=== PATIENT | female | born 2000 | race American Indian/Alaskan Native ===

== ENCOUNTER 2020-08-09 17:06 | Outpatient (CLI) | payer MEDICAID ==
[2020-08-09 17:58] LABS: Hematocrit 36.6 % (30.3-42.9); Hemoglobin 12.5 gm/dl (10.1-14.3); Mean Corpuscular HGB Conc 34 % (30-34); Mean Corpuscular Volume 97 fl (79-97); Platelet Count 184 K/mm3 (140-440); Red Blood Count 3.77 M/mm3 (3.65-5.03)
[2020-08-09 18:11] LABS: Bacteria,Urine 1+ /HPF (Negative); Bilirubin,Urine NEG (Negative); Blood,Urine NEG (Negative); Color,Urine Straw (Yellow); Protein,Urine <15 mg/dL mg/dL (Negative); Urobilinogen,Urine < 2.0 mg/dL (<2.0)
[2020-08-09 18:18] LABS: Alanine Aminotransferase 22 units/L (7-56); Uric Acid 3.1 mg/dL (3.5-7.6)
[2020-08-09] MEDS ORDERED: ACETAMINOPHEN 500 MG TAB PO ONE (18:20)
[2020-08-09] MEDS ORDERED: METOCLOPRAMIDE 10 MG TAB PO ONE (18:20)
[2020-08-09 19:10] VITALS: BP 127/77
== END 2020-08-09 19:30 | disposition home or self-care (01) ==
LOC: TRG 17:06 → APU 17:08 → TRG 19:30
PROVIDERS: ATTEND Obstetrics & Gynecology
DX: O26.893 Other specified pregnancy related conditions, third trimester (principal); R11.2 Nausea with vomiting, unspecified; R51.9 Headache, unspecified; R60.0 Localized edema; Z3A.35 35 weeks gestation of pregnancy
CPT/HCPCS: 36415; 59025; 81001; 82565; 83615; 84450; 84460; 84550; 85027

== ENCOUNTER 2020-08-13 20:50 | Outpatient (CLI) | payer MEDICAID ==
[2020-08-13] MEDS ORDERED: ACETAMINOPHEN 500 MG TAB PO ONE (21:43)
[2020-08-13 21:45] LABS: Amorphous Crystals,Urine Few; Bilirubin,Urine NEG (Negative); Blood,Urine NEG (Negative); Color,Urine Yellow (Yellow); Mucus,Urine FEW /HPF; Protein,Urine <15 mg/dL mg/dL (Negative); Urobilinogen,Urine < 2.0 mg/dL (<2.0)
[2020-08-13 23:10] LABS: Hemoglobin 11.7 gm/dl (10.1-14.3); Mean Corpuscular HGB Conc 34 % (30-34); Mean Corpuscular Volume 96 fl (79-97); Platelet Count 206 K/mm3 (140-440); Red Blood Count 3.64 M/mm3 (3.65-5.03); Red Cell Distribution Width 13.4 % (13.2-15.2)
[2020-08-13 23:33] LABS: Alanine Aminotransferase 19 units/L (7-56)
[2020-08-14 01:38] LABS: Uric Acid 2.5 mg/dL (3.5-7.6)
[2020-08-14 02:59] VITALS: BP 114/51
== END 2020-08-14 01:52 | disposition home or self-care (01) ==
LOC: TRG 20:50 → APU 21:20 → TRG 08-14 01:52
PROVIDERS: ATTEND Obstetrics & Gynecology
DX: O13.3 Gestational [pregnancy-induced] hypertension without significant proteinuria, third trimester (principal); Z3A.36 36 weeks gestation of pregnancy
CPT/HCPCS: 36415; 59025; 81001; 82565; 83615; 84450; 84460; 84550; 85027; 87086

== ENCOUNTER 2020-08-31 18:56 | Outpatient (CLI) | payer MEDICAID ==
[2020-08-31 19:15] VITALS: BP 122/75
[2020-08-31] MEDS ORDERED: ACETAMINOPHEN 500 MG TAB PO ONE (19:37)
== END 2020-08-31 19:51 | disposition home or self-care (01) ==
LOC: TRG 18:56 → APU 18:58 → TRG 19:51
PROVIDERS: ATTEND Obstetrics & Gynecology
DX: O62.9 Abnormality of forces of labor, unspecified (principal); Z3A.38 38 weeks gestation of pregnancy
CPT/HCPCS: 59025; Q0177

== ENCOUNTER 2020-09-13 14:34 | Inpatient (IN) | payer MEDICAID ==
--- NOTE | 2020-09-13 17:41 | Ultrasound Report ---
ULTRASOUND OBSTETRIC LIMITED ULTRASOUND BIOPHYSICAL PROFILE INDICATION / CLINICAL INFORMATION: WELL BEING. Clinical Gestational Age (GA) in weeks, days: 40 weeks 2 days TECHNIQUE: Transabdominal. COMPARISON: None available. FINDINGS: BREATHING MOVEMENT = 2 GROSS BODY MOVEMENT = 2 TONE = 2 QUALITATIVE AMNIOTIC FLUID VOLUME = 2 TOTAL BIOPHYSICAL SCORE = 8/8 HEART RATE (beats per minute): 145 AMNIOTIC FLUID INDEX (cm) = 10.3 (normal = 7-24 cm) PRESENTATION: Cephalic. ADDITIONAL FINDINGS: None. IMPRESSION: 1. Biophysical Score = 8/8 2. Single viable IUP in a cephalic presentation. 3. Normal HIRAM Signer Name: Teresa Burt MD Signed: 09/13/2020 5:36 PM Workstation Name: [id number]
--- NOTE | 2020-09-13 18:14 | History and Physical Report ---
History of Present Illness Date of examination: 09/13/20 Date of admission: 09/13/20 Chief complaint: contractions History of present illness: Pt presents c/o contractions q 5 mintues. Pt evaluated in triage an noted to have variable decels and only 10x10 acels at time of provider evaltion. Pt did have reactive strip at some points during stay in triage. BPP was 8/8 with normal HIRAM however pt kept for iol due to being post term and having variable decels. Plan of care d/w pt and questions were addressed and answered. I d/w pt and fob serial IOL and that this can take up to three days. Both expressed understanidng. Pt is GBS positive. EDC Confirmation: 09/11/2020 Gestational Age: 40.2 weeks Past History : 3 Spont. Ab: 1 # 2 Delivery date: 08/2019 Delivery type: SAB Risk Factors: Smoked Tobacco Use: Never smoker Smokeless Tobacco Use: Never Drug use: yes Comments: [facility] HIV high-risk behavior: no Alcohol use: yes Exercise: yes Times per week: occ Seatbelt use: 100 % Past Medical History: Reviewed history from 08/23/2019 and no changes required: Arrhythmia ( SVT) Depression hospitalization 2018 Past Surgical History: Reviewed history from 08/23/2019 and no changes required: Cardiac ablation(01/2015) Past Medical History Social Hx: Marital Status: Single Children: 0 Occupation: graduated 2019 Smoking History: Patient has never smoked. Infection History HIV Risk Eval: no Genetic History Congenital Heart Defect: Mom: no Dad: no Jarrell Disease: Mom: no Dad: no Thalassemia Mom: no Dad: no Neural Tube Defect Mom: no Dad: no Down's Syndrome Mom: no Dad: no Alex-Sachs Mom: no Dad: no Sickle Cell Disease/Trait Mom: no Dad: no Hemophilia Mom: no Dad: no Muscular Dystrophy Mom: no Dad: no Cystic Fibrosis Mom: no Dad: no [place]ing Chorea Mom: no Dad: no Mental Retardation Mom: no Dad: no Fragile X Mom: no Dad: no Other Genetic/Chromosomal Disorder Mom: no Dad: no Child w/other defect Mom: no Dad: no Enviromental Exposures Xray Exposure: no Medication, drug, or alcohol use since LMP: no Chemical/Other Exposure: no Exposure to Cat Liter: no Hx of Parvovirus (Fifth Disease): no Occupational Exposure to Children: none Active Medications (reviewed today): PLUS 27-1 MG ORAL TABLET ( VIT-FE FUMARATE-FA) 1 po PROMETHAZINE HCL 12.5 MG ORAL TABLET (PROMETHAZINE HCL) 1 po q 6 hrs prn nausea OTC PNV () Current Allergies (reviewed today): No known allergies Past History Past Medical History: other (see hpi) Past Surgical History: no surgical history SUPPLY TECHNICIAN History: other (see hpi) Social history: no significant social history, single - Obstetrical History Expected Date of Delivery: 09/11/20 Actual Gestation: 40 Week(s) 4 Day(s) : 3 Induced : 1 Medications and Allergies Allergies Allergy/AdvReac Type Severity Reaction Status Date / Time No Known Allergies Allergy Unverified 08/09/20 18:25 Home Medications Medication Instructions Recorded Confirmed Last Taken Type No Known Home Medications [No 08/31/20 09/14/20 Unknown History Reported Home Medications] Review of Systems All systems: negative - Vital Signs Vital signs: Vital Signs Temp Pulse Resp Pulse Ox 98.1 F 94 H 16 99 09/13/20 15:00 09/13/20 15:00 09/13/20 15:00 09/13/20 15:00 Temp Pulse Resp BP Pulse Ox 98.1 F 86 16 131/86 99 09/13/20 15:00 09/13/20 18:06 09/13/20 15:00 09/13/20 17:50 09/13/20 18:06 - Physical Exam Breasts: Positive: deferred Lungs: Positive: Normal air movement Genitourinary (Female): Positive: normal perenium Vulva: both: normal (no lesions noted) Extremities: Positive: normal. Negative: tenderness, edema Deep Tendon Reflex Grade: Normal +2 - Obstetrical FHR: category 2 (variable decels) Cervical Dilatation: 1.5 (soft, mid position) Cervical Effacement Percentage: 60 station: -2 Results Result Diagrams: 09/13/20 19:12 09/13/20 19:12 All other labs normal. Assessment and Plan - Patient Problems (1) 40 weeks gestation of Current Visit: Yes Status: Acute (2) Variable deceleration Current Visit: Yes Status: Acute Plan to address problem: -admit -start serial IOL -antibx for GBS positive (3) Positive GBS test Current Visit: Yes Status: Acute Plan to address problem: -start antibx
[2020-09-13] MEDS ORDERED: LIDOCAINE (2%) 20 MG/1 ML VIAL 20 ML MDV INFILTRATI ONE (18:19)
[2020-09-13] MEDS ORDERED: CARBOPROST TROMETHAMINE 250 MCG/1 ML INJ IM PRN (19:00)
[2020-09-13] MEDS ORDERED: TERBUTALINE 1 MG/1 ML INJ SUB-Q PRN (19:00)
[2020-09-13] MEDS ORDERED: METHYLERGONOVINE MALEATE 0.2 MG/ML VIAL IM PRN (19:00)
[2020-09-13] MEDS ORDERED: LACTATED RINGERS 1,000 ML IV SCH (19:00)
[2020-09-13] MEDS ORDERED: MINERAL OIL 30 ML ORAL LIQD PO PRN (19:00)
[2020-09-13] MEDS ORDERED: ACETAMINOPHEN 325 MG TAB PO PRN (19:00)
[2020-09-13] MEDS ORDERED: ONDANSETRON 4 MG/2 ML INJ IV PRN (19:00)
[2020-09-13] MEDS ORDERED: OXYTOCIN DRIP 30 UNITS/500 ML BAG IV SCH (19:00)
[2020-09-13] MEDS ORDERED: fentaNYL 100 MCG/2 ML INJ IV PRN (19:00)
[2020-09-13] MEDS ORDERED: DINOPROSTONE 10 MG VAG SUPP VG ONE (19:00)
[2020-09-13] MEDS ORDERED: BUTORPHANOL 2 MG/1 ML INJ IV PRN (19:00)
[2020-09-13] MEDS ORDERED: LOPERAMIDE 2 MG CAP PO PRN (19:00)
[2020-09-13] MEDS ORDERED: OXYTOCIN 10 UNIT/1 ML INJ IM PRN (19:00)
[2020-09-13] MEDS ORDERED: miSOPROStol 200 MCG TAB PR PRN (19:00)
[2020-09-13] MEDS ORDERED: ePHEDrine SULFATE 50 MG/1 ML INJ IV PRN (19:00)
[2020-09-13] MEDS ORDERED: AMPICILLIN/NS 2 GM/100 ML 2 GM/100 ML BAG IV ONE (19:00)
[2020-09-13 19:36] LABS: Hematocrit 36.4 % (30.3-42.9); Hemoglobin 12.4 gm/dl (10.1-14.3); Mean Corpuscular HGB Conc 34 % (30-34); Mean Corpuscular Volume 95 fl (79-97); Platelet Count 191 K/mm3 (140-440); Red Blood Count 3.83 M/mm3 (3.65-5.03); Red Cell Distribution Width 13.1 % (13.2-15.2)
[2020-09-13 19:58] LABS: Alanine Aminotransferase 12 units/L (7-56); Uric Acid 3.3 mg/dL (3.5-7.6)
[2020-09-13 20:05] LABS: Bilirubin,Urine NEG (Negative); Blood,Urine SM (Negative); Color,Urine Yellow (Yellow); Mucus,Urine FEW /HPF; Protein,Urine <15 mg/dL mg/dL (Negative); Urobilinogen,Urine < 2.0 mg/dL (<2.0)
[2020-09-13] MEDS: AMPICILLIN/NS 1 GM/50 ML 1 GM/50 ML BAG IV SCH (23:45)
--- NOTE | 2020-09-14 00:53 | Event Note ---
Date: 09/14/20 Pt with labile blood pressures. PIH labs are normal and she has no sx. Will cont to closely monitor.
--- NOTE | 2020-09-14 08:18 | Progress Note ---
Assessment and Plan CNM and RN to BS. Cervidil pulled and SVE performed. Pt tolerated procedures well. Reports contractions and desires for epidural eventually for labor pain management. POC reviewed. Pt ok to have am care and breakfast then start Pitocin IV induction per protocol. All questions and concerns addressed. - Patient Problems (1) 40 weeks gestation of Current Visit: Yes Status: Acute (2) Positive GBS test Current Visit: Yes Status: Acute Plan to address problem: antibiotics as ordered Subjective - Subjective Date of service: 09/14/20 Principal diagnosis: IOL GHTN Patient reports: contractions, no new complaints, no loss of fluid, no vaginal bleeding Objective - Vital Signs Vital Signs: Vital Signs - 12hr 09/13/20 09/13/20 09/13/20 20:18 20:23 20:28 Temperature Pulse Rate 97 H 92 H 89 Blood Pressure O2 Sat by Pulse 98 98 98 Oximetry 09/13/20 09/13/20 09/13/20 20:33 20:38 20:43 Temperature Pulse Rate 89 91 H 86 Blood Pressure O2 Sat by Pulse 98 98 97 Oximetry 09/13/20 09/13/20 09/13/20 20:48 20:53 20:58 Temperature Pulse Rate 86 89 86 Blood Pressure O2 Sat by Pulse 97 98 97 Oximetry 09/13/20 09/13/20 09/13/20 21:03 21:08 21:13 Temperature Pulse Rate 86 87 94 H Blood Pressure O2 Sat by Pulse 97 97 97 Oximetry 09/13/20 09/13/20 09/13/20 21:18 21:23 21:28 Temperature Pulse Rate 86 80 89 Blood Pressure O2 Sat by Pulse 97 97 97 Oximetry 09/13/20 09/13/20 09/13/20 21:33 21:38 21:43 Temperature Pulse Rate 82 86 89 Blood Pressure O2 Sat by Pulse 97 97 97 Oximetry 09/13/20 09/13/20 09/13/20 21:48 21:53 21:58 Temperature Pulse Rate 90 86 90 Blood Pressure O2 Sat by Pulse 97 97 98 Oximetry 09/13/20 09/13/20 09/13/20 22:03 22:08 22:13 Temperature Pulse Rate 86 91 H 85 Blood Pressure O2 Sat by Pulse 98 98 98 Oximetry 09/13/20 09/13/20 09/13/20 22:18 22:23 22:28 Temperature Pulse Rate 87 85 84 Blood Pressure O2 Sat by Pulse 98 98 99 Oximetry 09/13/20 09/13/20 09/13/20 22:33 22:38 22:43 Temperature Pulse Rate 89 81 87 Blood Pressure O2 Sat by Pulse 98 98 98 Oximetry 09/13/20 09/13/20 09/13/20 22:48 22:53 22:58 Temperature Pulse Rate 83 80 86 Blood Pressure O2 Sat by Pulse 98 98 98 Oximetry 09/13/20 09/13/20 09/13/20 23:03 23:08 23:13 Temperature Pulse Rate 86 91 H 82 Blood Pressure O2 Sat by Pulse 98 98 99 Oximetry 09/13/20 09/13/20 09/13/20 23:18 23:23 23:28 Temperature Pulse Rate 83 86 98 H Blood Pressure O2 Sat by Pulse 98 98 99 Oximetry 09/13/20 09/13/20 09/13/20 23:33 23:34 23:48 Temperature Pulse Rate 104 H 90 117 H Blood Pressure 134/65 O2 Sat by Pulse 99 98 Oximetry 09/13/20 09/13/20 09/14/20 23:53 23:58 00:03 Temperature Pulse Rate 93 H 86 91 H Blood Pressure O2 Sat by Pulse 99 99 98 Oximetry 09/14/20 09/14/20 09/14/20 00:08 00:13 00:18 Temperature Pulse Rate 87 95 H 88 Blood Pressure O2 Sat by Pulse 98 99 99 Oximetry 09/14/20 09/14/20 09/14/20 00:23 00:28 00:33 Temperature Pulse Rate 97 H 92 H 86 Blood Pressure O2 Sat by Pulse 98 99 100 Oximetry 09/14/20 09/14/20 09/14/20 00:35 00:38 00:43 Temperature 98.3 F Pulse Rate 97 H 88 Blood Pressure O2 Sat by Pulse 100 99 Oximetry 09/14/20 09/14/20 09/14/20 00:48 00:53 01:07 Temperature Pulse Rate 97 H 99 H 101 H Blood Pressure O2 Sat by Pulse 100 99 98 Oximetry 09/14/20 09/14/20 09/14/20 01:12 01:17 01:22 Temperature Pulse Rate 84 80 85 Blood Pressure O2 Sat by Pulse 98 99 99 Oximetry 09/14/20 09/14/20 09/14/20 01:27 01:32 01:37 Temperature Pulse Rate 85 87 90 Blood Pressure O2 Sat by Pulse 98 98 99 Oximetry 09/14/20 09/14/20 09/14/20 01:42 01:47 01:52 Temperature Pulse Rate 93 H 85 81 Blood Pressure O2 Sat by Pulse 99 98 98 Oximetry 09/14/20 09/14/20 09/14/20 01:57 02:02 02:07 Temperature Pulse Rate 86 82 85 Blood Pressure O2 Sat by Pulse 97 98 98 Oximetry 09/14/20 09/14/20 09/14/20 02:12 02:17 02:22 Temperature Pulse Rate 77 80 90 Blood Pressure O2 Sat by Pulse 99 99 98 Oximetry 09/14/20 09/14/20 09/14/20 02:27 02:32 02:37 Temperature Pulse Rate 92 H 86 90 Blood Pressure O2 Sat by Pulse 98 98 98 Oximetry 09/14/20 09/14/20 09/14/20 02:42 02:47 02:52 Temperature Pulse Rate 83 80 85 Blood Pressure O2 Sat by Pulse 98 99 98 Oximetry 09/14/20 09/14/20 09/14/20 02:57 03:02 03:07 Temperature Pulse Rate 78 85 84 Blood Pressure O2 Sat by Pulse 98 98 98 Oximetry 09/14/20 09/14/20 09/14/20 03:12 03:17 03:22 Temperature Pulse Rate 89 81 87 Blood Pressure O2 Sat by Pulse 97 98 97 Oximetry 09/14/20 09/14/20 09/14/20 03:27 03:32 03:37 Temperature Pulse Rate 80 78 79 Blood Pressure O2 Sat by Pulse 97 97 97 Oximetry 09/14/20 09/14/20 09/14/20 03:42 03:47 03:52 Temperature Pulse Rate 79 72 75 Blood Pressure O2 Sat by Pulse 97 97 97 Oximetry 09/14/20 09/14/20 09/14/20 03:57 04:02 04:07 Temperature Pulse Rate 84 83 70 Blood Pressure O2 Sat by Pulse 97 97 97 Oximetry 09/14/20 09/14/20 09/14/20 04:12 04:17 04:22 Temperature Pulse Rate 74 73 76 Blood Pressure O2 Sat by Pulse 97 97 97 Oximetry 08/02/21 08/02/21 08/02/21 04:27 04:32 04:37 Temperature Pulse Rate 75 95 H 105 H Blood Pressure O2 Sat by Pulse 97 98 98 Oximetry 09/14/20 09/14/20 09/14/20 04:42 04:47 04:52 Temperature Pulse Rate 89 74 77 Blood Pressure O2 Sat by Pulse 96 98 97 Oximetry 09/14/20 09/14/20 09/14/20 04:57 05:02 05:07 Temperature Pulse Rate 77 96 H 73 Blood Pressure O2 Sat by Pulse 98 99 98 Oximetry 09/14/20 09/14/20 09/14/20 05:12 05:17 05:22 Temperature Pulse Rate 79 71 84 Blood Pressure O2 Sat by Pulse 97 98 98 Oximetry 09/14/20 09/14/20 09/14/20 05:27 05:32 05:37 Temperature Pulse Rate 98 H 74 78 Blood Pressure O2 Sat by Pulse 95 98 97 Oximetry 09/14/20 09/14/20 09/14/20 05:42 05:53 05:58 Temperature Pulse Rate 114 H 103 H 98 H Blood Pressure O2 Sat by Pulse 99 99 99 Oximetry 09/14/20 09/14/20 09/14/20 06:03 06:08 06:13 Temperature Pulse Rate 79 79 83 Blood Pressure O2 Sat by Pulse 98 97 98 Oximetry 09/14/20 09/14/20 09/14/20 06:18 06:23 06:28 Temperature Pulse Rate 92 H 84 85 Blood Pressure O2 Sat by Pulse 98 99 98 Oximetry 09/14/20 09/14/20 09/14/20 06:33 06:38 06:43 Temperature Pulse Rate 95 H 97 H 116 H Blood Pressure O2 Sat by Pulse 98 98 99 Oximetry 09/14/20 09/14/20 09/14/20 06:48 06:53 06:58 Temperature Pulse Rate 93 H 106 H 89 Blood Pressure O2 Sat by Pulse 98 99 98 Oximetry 09/14/20 09/14/20 09/14/20 07:03 07:08 07:13 Temperature Pulse Rate 88 93 H 85 Blood Pressure O2 Sat by Pulse 99 98 99 Oximetry 09/14/20 09/14/20 09/14/20 07:18 07:23 07:28 Temperature Pulse Rate 99 H 85 93 H Blood Pressure O2 Sat by Pulse 98 99 99 Oximetry 09/14/20 09/14/20 09/14/20 07:33 07:38 07:43 Temperature Pulse Rate 89 89 87 Blood Pressure O2 Sat by Pulse 98 99 99 Oximetry 09/14/20 09/14/20 09/14/20 07:48 07:53 07:58 Temperature Pulse Rate 74 83 88 Blood Pressure O2 Sat by Pulse 99 99 99 Oximetry 09/14/20 09/14/20 08:03 08:08 Temperature Pulse Rate 96 H 92 H Blood Pressure O2 Sat by Pulse 99 99 Oximetry - Exam Breasts: deferred Cardiovascular: Regular rate Lungs: Normal air movement Abdomen: Present: normal appearance, soft Vulva: both: normal Uterus: Present: normal FHR: auscultation normal, category 1 Uterine Contraction Monitor Mode: External Cervical Dilatation: 3 Cervical Effacement Percentage: 60 station: -2 Uterine Contraction Pattern: Irregular Uterine Tone Measurement Phase: Resting Extremities: normal - Labs Labs: Abnormal Labs 09/13/20 09/13/20 19:12 19:12 WBC 12.2 H RDW 13.1 L Uric Acid 3.3 L Lactate Dehydrogenase 197 H Laboratory Results - last 24 hr 09/13/20 09/13/20 09/13/20 18:49 19:12 19:12 WBC 12.2 H RBC 3.83 Hgb 12.4 Hct 36.4 MCV 95 MCH 32 MCHC 34 RDW 13.1 L Plt Count 191 Creatinine 0.6 Estimated GFR > 60 Uric Acid 3.3 L AST 21 ALT 12 Lactate Dehydrogenase 197 H Urine Color Yellow Urine Turbidity Clear Urine pH 6.0 Ur Specific [place] 1.013 Urine Protein <15 mg/dl Urine Glucose (UA) Neg Urine Ketones Neg Urine Blood Sm Urine Nitrite Neg Urine Bilirubin Neg Urine Urobilinogen < 2.0 Ur Leukocyte Esterase Neg Urine WBC (Auto) 1.0 Urine RBC (Auto) 11.0 U Epithel Cells (Auto) < 1.0 Urine Mucus Few Syphilis IgG Antibody Blood Type Antibody Screen 09/13/20 09/13/20 19:12 19:12 WBC RBC Hgb Hct MCV MCH MCHC RDW Plt Count Creatinine Estimated GFR Uric Acid AST ALT Lactate Dehydrogenase Urine Color Urine Turbidity Urine pH Ur Specific [place] Urine Protein Urine Glucose (UA) Urine Ketones Urine Blood Urine Nitrite Urine Bilirubin Urine Urobilinogen Ur Leukocyte Esterase Urine WBC (Auto) Urine RBC (Auto) U Epithel Cells (Auto) Urine Mucus Syphilis IgG Antibody Nonreactive Blood Type A POSITIVE Antibody Screen Negative
[2020-09-14] MEDS: OXYTOCIN DRIP 30 UNITS/500 ML BAG IV SCH ×4 (09:45→17:35)
[2020-09-14] MEDS: AMPICILLIN/NS 1 GM/50 ML 1 GM/50 ML BAG IV SCH ×2 (12:15→16:08)
--- NOTE | 2020-09-14 12:26 | Event Note ---
Date: 09/14/20 Pt reports tolerable "period like cramps", denies having any other complaints at this time. Pt consented for SVE and AROM, risks and benefits d/w pt and pt verbalizes understanding. SVE /-2 AROM clear. POC d/w pt. Plan to continue pitocin IOL and VS per protocol, antibiotics q4h, continuous monitoring for changes in maternal or status; anticipate
[2020-09-14] MEDS ORDERED: ePHEDrine SULFATE 50 MG/1 ML INJ IV PRN (14:21)
[2020-09-14] MEDS ORDERED: NALOXONE 2 MG/2 ML INJ IV PRN (14:21)
--- NOTE | 2020-09-14 14:24 | Anesthesia Consultation ---
Anesthesia Consult and Med Hx Date of service: 09/14/20 - Airway Anesthetic Teeth Evaluation: Poor ROM Head & Neck: Adequate Mental/Hyoid Distance: Adequate Mallampati Class: Class II Intubation Access Assessment: Good - Pulmonary Exam CTA: Yes - Cardiac Exam Cardiac Exam: RRR - Pre-Operative Health Status ASA Pre-Surgery Classification: ASA2 Proposed Anesthetic Plan: Epidural - Pulmonary Hx Smoking: No Hx Asthma: No Hx Respiratory Symptoms: No SOB: No COPD: No Home Oxygen Therapy: No Hx Pneumonia: No Hx Sleep Apnea: No - Cardiovascular System Hx Hypertension: No Hx Coronary Artery Disease: No Hx Heart Attack/AMI: No Hx Angina: No Hx Percutaneous Transluminal Coronary Angioplasty (PTCA): No Hx Cardia Arrhythmia: No Hx Pacemaker: No Hx Internal Defibrillator: No Hx Valvular Heart Disease: No Hx Heart Murmur: No Hx Peripheral Vascular Disease: No - Central Nervous System Hx Neuromuscular Disorder: No Hx Seizures: No CVA: No Hx Back Pain: Yes Hx Psychiatric Problems: No - Gastrointestinal Hx Ulcer: No Hx Gastroesophageal Reflux Disease: Yes - Endocrine Hx Renal Disease: No Hx End Stage Renal Disease: No Hx Cirrhosis: No Hx Liver Disease: No Hx Insulin Dependent Diabetes: No Hx Non-Insulin Dependent Diabetes: No Hx Thyroid Disease: No Hx Hypothyroidism: No Hx Hyperthyroidism: No - Hematic Hx Anemia: No Hx Sickle Cell Disease: No - Other Systems Hx Alcohol Use: No Hx Substance Use: No Hx Cancer: No Hx Obesity: Yes
[2020-09-14] MEDS ORDERED: fentaNYL-BUPIV 2 MCG/ML-0.125% 200 MCG/100 ML BAG EPIDURAL SCH (15:00)
--- NOTE | 2020-09-14 16:51 | Progress Note ---
Labor Epidural - Labor Epidural Start Time: 14:38 Stop Time: 14:43 Performed by:: DELBERT TREJO Procedure: Patient is requesting a laboring epidural for laboring pain. Patient IDed, H&P reviewed, all questions and concerns were answered, and consent was signed. Timeout was performed at bedside. Patient in sitting position. Sterile prep and drape was performed. [3] ml of 1% lidocaine skin wheal at L[3]- L [4]. 18- gauge Onel epidural needle was advanced to loss of resistance with saline technique 8cm. Negative CSF negative blood. Epidural catheter advanced to [12] centimeters. [NEGATIVE] Aspiration [NEGATIVE] test dose. Sterile dressing applied. Patient tolerated procedure.
--- NOTE | 2020-09-14 22:36 | Procedure Note ---
OB Delivery Note - Delivery Date of Delivery: 09/14/20 Fermentation Scientist: TAYE MAYNARD Estimated blood loss: 100cc - Vaginal Delivery presentation: vertex Delivery position: OA Intrapartum events: gestational hypertension, shoulder dystocia (<30seconds, relieved first attempt with Megan maneuver and simultaneous RN suprapubic pressure) Delivery induction: cervidil Delivery augmentation: rupture of membranes, pitocin Delivery monitor: external FHT, external uterine, internal FHT, internal uterine Route of delivery: Delivery placenta: spontaneous Delivery cord: 3 umbilical vessels Episiotomy: none Delivery laceration: vaginal side wall Delivery repair: other (repair not needed; hemostatic) Anesthesia: epidural Delivery comments: all counts correct x2 OLGA present for delivery Pericare done, fundus firm 2 fingerbreadths below umbilicus with scant vaginal bleeding Mom and baby remain LDR stable - Infant A at 1 minute: 8 at 5 minutes: 9 Gender: Female ("Terrei" [id number])
[2020-09-15] MEDS ORDERED: oxyCODONE /ACETAMINOPHEN 5-325MG TAB PO PRN (00:55)
[2020-09-15] MEDS ORDERED: BENZOCAINE/MENTHOL 20/0.5% TOP SPRAY 56 GM TP PRN (00:55)
[2020-09-15] MEDS ORDERED: ACETAMINOPHEN 325 MG TAB PO PRN (00:55)
[2020-09-15] MEDS ORDERED: ONDANSETRON 4 MG/2 ML INJ IV PRN (00:55)
[2020-09-15] MEDS ORDERED: diphenhydrAMINE 25 MG CAP PO PRN (00:55)
[2020-09-15] MEDS ORDERED: MAGNESIUM HYDROXIDE (MOM) ORAL LIQD UDC PO PRN (00:55)
[2020-09-15] MEDS ORDERED: LANOLIN/ZINC/DIMETHICONE (LANSINOH) 7 GM TP PRN (00:55)
[2020-09-15] MEDS ORDERED: WITCH HAZEL/ GLYCERIN PAD TP PRN (00:55)
[2020-09-15] MEDS ORDERED: PROMETHAZINE 25 MG TAB PO PRN (00:55)
[2020-09-15] MEDS: IBUPROFEN 600 MG TAB PO SCH ×2 (04:35→20:07)
--- NOTE | 2020-09-15 05:31 | Progress Note ---
Assessment and Plan - Patient Problems (1) Spontaneous vaginal delivery Onset Date: ~09/14/20 Current Visit: Yes Status: Acute Plan to address problem: Pt resting No c/o voiced BP 138/78 remainder wnl. FF below umb Lochia small perineum slight swelling intact. H&H pending Stable s/p vag delivery; GHTN P: continue pathway Advance as tolerated. Continue close monitoring of BP (2) Gestational hypertension Onset Date: ~09/15/20 Current Visit: Yes Status: Acute Qualifiers: Trimester: unspecified trimester Qualified Code(s): O13.9 - Gestational [-induced] hypertension without significant proteinuria, unspecified trimester Plan to address problem: BP 138/87 this AM @ 0430 Will closely monitor BP. Pt denies PADILLA Blurred vision, Chest pain. Subjective - Subjective Date of service: 09/15/20 (sleeping No c/o voiced) Principal diagnosis: 12hr s/p ; GHTN Patient reports: appetite normal, voiding normally, pain well controlled, ambulating normally : doing well Objective - Vital Signs Latest vital signs: Vital Signs Temp Pulse Resp BP BP Pulse Ox Pulse Ox 09/15/20 04:35 20 09/15/20 04:30 98.6 F 86 18 138/87 98 09/15/20 01:15 99 09/15/20 01:11 99 F 96 H 127/67 09/15/20 00:54 111 H 99 09/15/20 00:49 111 H 98 09/15/20 00:44 122 H 129/62 98 09/15/20 00:39 119 H 97 09/15/20 00:34 115 H 95 09/15/20 00:30 115 H 94 09/15/20 00:29 110 H 122/61 98 09/15/20 00:24 112 H 98 09/15/20 00:23 112 H 94 09/15/20 00:19 109 H 95 09/15/20 00:17 235 H 94 09/15/20 00:14 114 H 127/61 96 09/15/20 00:09 105 H 97 09/15/20 00:04 115 H 99 09/14/20 23:59 101 H 129/61 96 09/14/20 23:54 105 H 98 09/14/20 23:49 107 H 96 09/14/20 23:44 107 H 130/58 97 09/14/20 23:43 103 H 94 09/14/20 23:39 101 H 97 09/14/20 23:34 115 H 97 09/14/20 23:29 106 H 128/60 97 09/14/20 23:24 103 H 97 09/14/20 23:19 103 H 97 09/14/20 23:14 103 H 124/77 97 09/14/20 23:09 102 H 97 09/14/20 23:04 95 H 97 09/14/20 22:59 101 H 118/89 98 09/14/20 22:54 99 H 96 09/14/20 22:49 108 H 97 09/14/20 22:44 106 H 123/81 97 09/14/20 22:39 110 H 97 09/14/20 22:36 98.8 F 107 H 118/84 09/14/20 22:34 109 H 98 09/14/20 22:33 114 H 93 09/14/20 22:29 107 H 97 09/14/20 22:24 108 H 100 09/14/20 22:19 107 H 100 09/14/20 22:14 124 H 135/61 99 09/14/20 22:09 108 H 97 09/14/20 22:04 104 H 100 09/14/20 21:59 101 H 136/62 99 09/14/20 21:54 119 H 99 09/14/20 21:49 107 H 99 09/14/20 21:44 107 H 133/61 99 09/14/20 21:39 103 H 100 09/14/20 21:34 103 H 100 09/14/20 21:29 94 H 112/53 100 02 21:24 82 100 09/14/20 21:19 92 H 100 09/14/20 21:15 78 128/59 02 21:14 88 99 09/14/20 21:09 86 98 09/14/20 21:04 81 98 02 21:00 85 131/61 09/14/20 20:59 85 98 09/14/20 20:54 71 100 09/14/20 20:49 74 100 09/14/20 20:44 89 126/58 99 09/14/20 20:39 92 H 99 09/14/20 20:34 82 98 09/14/20 20:29 79 129/67 99 09/14/20 20:24 75 100 09/14/20 20:19 94 H 100 09/14/20 20:15 88 116/56 09/14/20 20:14 98 H 100 09/14/20 20:09 91 H 99 09/14/20 20:04 91 H 97 09/14/20 20:00 86 125/65 09/14/20 19:59 87 98 09/14/20 19:54 100 H 99 09/14/20 19:49 94 H 98 09/14/20 19:45 85 132/65 09/14/20 19:44 95 H 98 09/14/20 19:39 89 99 09/14/20 19:34 76 99 09/14/20 19:29 87 130/66 98 09/14/20 19:24 77 99 09/14/20 19:19 83 99 09/14/20 19:18 98.6 F 86 12 100 09/14/20 19:14 85 116/58 100 09/14/20 19:09 79 100 09/14/20 19:04 84 100 09/14/20 19:00 80 125/66 09/14/20 18:59 81 100 09/14/20 18:54 88 100 09/14/20 18:51 97.7 F 09/14/20 18:49 97 H 100 09/14/20 18:45 82 135/71 09/14/20 18:44 85 99 09/14/20 18:39 86 100 09/14/20 18:34 78 100 09/14/20 18:29 85 132/75 99 09/14/20 18:24 87 99 09/14/20 18:19 93 H 100 09/14/20 18:15 87 137/82 09/14/20 18:14 93 H 99 09/14/20 18:09 87 100 09/14/20 18:04 87 99 09/14/20 18:00 83 133/82 09/14/20 17:59 85 99 09/14/20 17:54 78 99 02 17:49 85 99 09/14/20 17:45 69 125/67 09/14/20 17:44 76 98 09/14/20 17:39 73 98 08/02/21 17:34 87 98 09/14/20 17:29 75 129/67 97 09/14/20 17:24 73 98 09/14/20 17:19 73 98 09/14/20 17:14 72 125/64 97 09/14/20 17:09 73 97 09/14/20 17:04 77 97 09/14/20 16:59 54 L 125/68 88 09/14/20 16:51 77 94 09/14/20 16:46 74 96 09/14/20 16:44 69 127/64 09/14/20 16:41 74 97 09/14/20 16:36 76 98 09/14/20 16:31 78 98 09/14/20 16:29 74 127/65 09/14/20 16:26 79 99 09/14/20 16:21 66 98 09/14/20 16:16 73 98 09/14/20 16:14 75 127/65 09/14/20 16:11 72 99 09/14/20 16:06 73 98 09/14/20 16:01 74 97 09/14/20 15:59 86 125/64 09/14/20 15:56 73 96 09/14/20 15:51 72 98 09/14/20 15:46 74 98 09/14/20 15:45 73 126/67 09/14/20 15:41 80 99 09/14/20 15:38 98.1 F 09/14/20 15:36 81 99 09/14/20 15:31 78 98 09/14/20 15:30 78 135/70 09/14/20 15:26 79 99 09/14/20 15:21 79 99 09/14/20 15:16 78 99 09/14/20 15:14 76 132/69 09/14/20 15:11 79 131/68 98 09/14/20 15:08 73 129/64 09/14/20 15:06 78 98 09/14/20 15:05 77 129/71 09/14/20 15:02 77 127/64 09/14/20 15:01 79 99 09/14/20 14:59 77 125/66 09/14/20 14:56 80 127/68 99 09/14/20 14:53 75 133/71 09/14/20 14:51 82 99 08/02/21 14:47 89 133/79 09/14/20 14:46 95 H 99 09/14/20 14:44 87 129/72 09/14/20 14:41 100 H 139/70 100 09/14/20 14:38 100 H 137/86 09/14/20 14:36 94 H 100 09/14/20 14:31 97 H 99 09/14/20 14:26 85 100 09/14/20 14:21 78 100 09/14/20 14:16 77 99 09/14/20 14:11 92 H 100 09/14/20 14:06 96 H 100 09/14/20 14:02 88 133/74 09/14/20 14:01 88 99 09/14/20 13:56 87 99 09/14/20 13:51 93 H 99 09/14/20 13:46 92 H 100 09/14/20 13:41 107 H 99 09/14/20 13:36 93 H 99 09/14/20 13:32 88 117/69 09/14/20 13:31 90 99 09/14/20 13:26 103 H 99 09/14/20 13:21 86 99 09/14/20 13:16 100 H 99 09/14/20 13:11 101 H 98 09/14/20 13:06 94 H 99 09/14/20 13:03 93 H 125/59 09/14/20 13:01 99 H 98 09/14/20 12:56 93 H 99 09/14/20 12:51 101 H 99 09/14/20 12:46 98 H 99 09/14/20 12:41 104 H 99 09/14/20 12:36 108 H 99 09/14/20 12:32 105 H 132/81 09/14/20 12:31 99 H 99 09/14/20 12:26 107 H 99 09/14/20 12:13 90 99 09/14/20 12:08 93 H 98 09/14/20 12:03 97.9 F 91 H 98 09/14/20 12:02 96 H 125/70 09/14/20 08:18 84 98 09/14/20 08:13 85 98 09/14/20 08:12 85 133/81 09/14/20 08:08 92 H 99 09/14/20 08:07 98.0 F 90 16 133/81 98 09/14/20 08:03 96 H 99 09/14/20 07:58 88 99 09/14/20 07:53 83 99 09/14/20 07:48 74 99 09/14/20 07:43 87 99 09/14/20 07:38 89 99 09/14/20 07:33 89 98 09/14/20 07:28 93 H 99 09/14/20 07:23 85 99 09/14/20 07:18 99 H 98 09/14/20 07:13 85 99 09/14/20 07:08 93 H 98 09/14/20 07:03 88 99 09/14/20 06:58 89 98 09/14/20 06:53 106 H 99 09/14/20 06:48 93 H 98 09/14/20 06:43 116 H 99 09/14/20 06:38 97 H 98 09/14/20 06:33 95 H 98 09/14/20 06:28 85 98 09/14/20 06:23 84 99 09/14/20 06:18 92 H 98 09/14/20 06:13 83 98 09/14/20 06:08 79 97 09/14/20 06:03 79 98 09/14/20 05:58 98 H 99 09/14/20 05:53 103 H 99 09/14/20 05:42 114 H 99 09/14/20 05:37 78 97 09/14/20 05:32 74 98 Intake and Output 09/14/20 09/14/20 09/15/20 14:59 22:59 06:59 Intake Total 50 22.433 240 Output Total 700 800 Balance 50 -677.567 -560 Intake: IV 50 22.433 AMPICILLIN/NS 1 GM/50 ML 50 1 gm In 50 ml @ 100 mls/ hr IV Q4H [facility] Rx#: [id number] PITOCin/NS 30 UNIT/500ML 22.433 30 units In 500 ml @ 2 mls/hr IV TITR [facility] Rx#: [id number] Oral 240 Output: Urine 700 800 Indwelling 200 Indwelling Catheter 500 Void 800 Other: Total, Intake Amount 120 Total, Output Amount 350 800 # Voids Void 1 Estimated Blood Loss 100 - Exam Breasts: Present: normal Cardiovascular: Present: Regular rate Lungs: Present: Normal air movement Abdomen: Present: normal appearance, soft Uterus: Present: normal, fundal height below umbilicus Extremities: Present: normal Deep Tendon Reflex Grade: Normal +2 Incision: Present: normal, dry, intact
[2020-09-15] MEDS: PRENATAL VIT27-FE FUMARATE-FOLIC ACID VIT TAB PO SCH (10:03)
[2020-09-15] MEDS: DOCUSATE SODIUM 100 MG CAP PO SCH ×2 (10:03→21:39)
--- NOTE | 2020-09-15 13:36 | Post Anesthesia Evaluation ---
- Post Anesthesia Evaluation Patient Participated: Yes Airway Patent: Yes Stable Respiratory Function: Yes Nausea/Vomiting: No Temp > 96.8F: Yes Pain Manageable: Yes Adequeate Hydration: Yes Anesthesia Complications: No Block Receding Appropriately: Yes Patient on Ventilator: No
[2020-09-15 16:33] LABS: Hematocrit 35.1 % (30.3-42.9); Hemoglobin 11.7 gm/dl (10.1-14.3)
--- NOTE | 2020-09-15 18:02 | Event Note ---
Date: 09/15/20 Review of blood pressures reveal several that are elevated. Will start labetalol 100mg po bid at this time. Plan of care d/w pt and questions addressed and answered.
[2020-09-16] MEDS: IBUPROFEN 600 MG TAB PO SCH ×2 (05:29)
[2020-09-16] MEDS ORDERED: TETANUS,DIPH,PERTUSS(ACELL) VACCINE 0.5 ML SYRINGE IM ONE (06:00)
--- NOTE | 2020-09-16 08:07 | Discharge Summary ---
Providers - Providers Date of Admission: 09/13/20 18:20 Date of discharge: 09/16/20 (desires d/c home) Attending physician: BRIAN DANG 09/15/20 00:55 Consult to Calender Supervisor [CONS] Routine Reason For Exam: assistance with , SNS Primary care physician: EDELMIRA BAL Hospitalization Reason for admission: induction of labor Condition: Good Pertinent studies: post delivery H&H 11.7/35.1 Procedures: Hospital course: uncomplicated and course Disposition: - TO HOME OR SELFCARE Final Discharge Diagnosis (Prints w/discharge instructions): and gestat ional htn Time spent for discharge: 25 - Discharge Diagnoses (1) Gestational hypertension Status: Acute Qualifiers: Trimester: unspecified trimester Qualified Code(s): O13.9 - Gestational [-induced] hypertension without significant proteinuria, unspecified trimester (2) Spontaneous vaginal delivery Status: Acute Core Measure Documentation - Palliative Care Palliative Care/ Comfort Measures: Not Applicable - Core Measures Any of the following diagnoses?: none Exam - Constitutional Vitals: Temp Pulse Resp BP Pulse Ox 98.0 F 88 18 129/67 98 09/16/20 04:22 09/16/20 04:22 09/16/20 06:29 09/16/20 04:22 09/16/20 04:22 General appearance: Present: no acute distress, well-nourished - EENT Eyes: Present: PERRL ENT: hearing intact, clear oral mucosa - Neck Neck: Present: supple, normal ROM - Respiratory Respiratory effort: normal Respiratory: bilateral: CTA - Cardiovascular Rhythm: regular Heart Sounds: Absent: rub, click - Extremities Extremities: No edema - Abdominal General gastrointestinal: Present: soft, non-tender, non-distended, normal bowel sounds Female genitourinary: Present: normal - Integumentary Integumentary: Present: clear, warm, dry - Musculoskeletal Musculoskeletal: gait normal, strength equal bilaterally - Psychiatric Psychiatric: appropriate mood/affect, intact judgment & insight - Neurologic Neurologic: CNII-XII intact, moves all extremities - Additional findings Additional findings: breast feeding, lochia scant, fundus firm. denies PADILLA, visual changes or epigastric pain Plan Activity: no restrictions Diet: regular Special Instructions: record daily BP diary, other ( ) Follow up with: EDELMIRA BAL MD [Primary Care Provider] - 7 Days (Congratulations! Please call [phone] to schedule your blood pressure check in 1 week. Call the office if your blood pressure is greater than 140/90, or if you develop a headache, changes in your vision or upper abdominal pain.) Prescriptions: labetaloL [Labetalol 100mg TAB] 100 mg PO BID #60 tablet Ibuprofen [Motrin 800 MG tab] 800 mg PO Q8HR PRN #30 tablet PRN Reason: Pain
[2020-09-16] MEDS: DOCUSATE SODIUM 100 MG CAP PO SCH (10:47)
[2020-09-16] MEDS: PRENATAL VIT27-FE FUMARATE-FOLIC ACID VIT TAB PO SCH (10:47)
[2020-09-16 12:00] VITALS: BP 133/87
== END 2020-09-16 14:00 | disposition home or self-care (01) | DRG 775 ==
LOC: TRG 14:34 → APU 14:36 → LD 18:12 → TRG 18:20 → OB 09-15 01:02
PROVIDERS: ADMIT Obstetrics & Gynecology; ATTEND Obstetrics & Gynecology
PROC: 10E0XZZ Delivery of Products of Conception, External Approach (ICD-10-PCS; principal; 2020-09-14)
PROC: 3E0P7VZ Introduction of Hormone into Female Reproductive, Via Natural or Artificial Opening (ICD-10-PCS; 2020-09-14)
PROC: 3E0R3BZ Introduction of Anesthetic Agent into Spinal Canal, Percutaneous Approach (ICD-10-PCS; 2020-09-14)
PROC: 00HU33Z Insertion of Infusion Device into Spinal Canal, Percutaneous Approach (ICD-10-PCS; 2020-09-14)
PROC: 3E0234Z Introduction of Serum, Toxoid and Vaccine into Muscle, Percutaneous Approach (ICD-10-PCS; 2020-09-16)
DX: O13.4 Gestational [pregnancy-induced] hypertension without significant proteinuria, complicating childbirth (principal); O99.824 Streptococcus B carrier state complicating childbirth; Z37.0 Single live birth; Z3A.40 40 weeks gestation of pregnancy; Z23 Encounter for immunization; Z20.822 Contact with and (suspected) exposure to COVID-19; O99.62 Diseases of the digestive system complicating childbirth; K21.9 Gastro-esophageal reflux disease without esophagitis; O66.0 Obstructed labor due to shoulder dystocia; O70.0 First degree perineal laceration during delivery
CPT/HCPCS: 36415; 59025; 59200; 76815; 76819; 81001; 82565; 83615; 84450; 84460; 84550; 85014; 85018; 85027; 86592; 86850; 86900; 86901; 88307; 99211; G0378; G0463; J0290; J2590; J7120; U0003